=== PATIENT | male | born 1980 | race Caucasian/White ===

== ENCOUNTER → 2018-10-19 09:39 | Outpatient (CLI) | payer SELFPAY ==
[2018-10-19 12:48] LABS: Cholesterol 221 mg/dL (200); Glucose 98 mg/dL (74-106); High Density Lipoprotein 48 mg/dL; Triglycerides 177 mg/dL; Very Low Density Lipoprotein 35 mg/dL (5-40)
== END ==
PROVIDERS: Family Provider Family Medicine; PCP Family Medicine; Referring Provider Psychiatry & Neurology Psychiatry; Visit Provider Psychiatry & Neurology Psychiatry
DX: F32.9 Major depressive disorder, single episode, unspecified (principal); Z79.899 Other long term (current) drug therapy
CPT/HCPCS: 36415; 80061; 82947; 83036